=== PATIENT | female | born 1990 | race Caucasian/White ===

== ENCOUNTER 2018-04-23 13:54 | Emergency (ER) | payer OTHER, SELFPAY ==
[2018-04-23] MEDS ORDERED: Ketorolac Tromethamine 30 MG/ML VIAL ONE (14:31)
[2018-04-23] MEDS ORDERED: Dexamethasone 4 MG TAB ONE (14:31)
== END 2018-04-23 15:03 | disposition home or self-care (01) ==
LOC: ERS 13:54
DX: J02.9 Acute pharyngitis, unspecified (principal)
CPT/HCPCS: 87081; 87430; 96372; J1885; J8540

== ENCOUNTER 2019-03-22 20:18 | Day surgery (SDC) | payer MEDICAID, SELFPAY ==
[2019-03-22 22:23] VITALS: BP 108/64; TEMP 98.5; BMI 37.5
[2019-03-22] MEDS ORDERED: Ondansetron ODT 8 MG TAB SL SCH (23:00)
[2019-03-22 23:03] LABS: Bilirubin Negative (Negative); Blood, Urine Negative (Negative); Clarity CLEAR (Clear); Glucose, Urine (Dipstick) Negative (Negative); Leukocyte Negative (Negative); Nitrite Negative (Negative); Protein, Urine (Dipstick) Negative (Neg-Trace); Specific Gravity, Urine 1.026 (1.002-1.036)
[2019-03-22 23:05] LABS: RBC/HPF 0-3 HPF (0-3); Squamous Epithelial 0-3 HPF (0-3); WBC/HPF 0-3 HPF (0-3)
[2019-03-22 23:06] LABS: Bacteria/HPF None Seen HPF (None Seen); Hyaline Casts/LPF 0-3 HYALINE CAST LPF (0-3 Hyaline)
[2019-03-22 23:12] LABS: Hemoglobin 13.6 g/dL (12.0-16.0); Mean Corpuscular HGB CONC 34.1 g/dL (32.0-36.0); Mean Corpuscular Hemoglobin 30.2 pg (27.0-31.0); Mean Corpuscular Volume 88.4 fL (78.0-98.0); Mean Platelet Volume 9.1 fL (7.4-10.4); Platelet Count 220 thou/uL (130-400); RBC Distribution Width 12.5 % (11.5-14.5); Red Blood Cell (RBC) Count 4.51 mill/uL (4.20-5.40); White Blood Cell (WBC) Count 10.1 thou/uL (4.8-10.8)
[2019-03-22 23:32] LABS: ALT (SGPT) 10 U/L (8-55); AST (SGOT) 8 U/L (5-34); Albumin 3.8 g/dL (3.5-5.0); Alkaline Phosphatase 74 U/L (40-150); Anion Gap 10 mmol/L (10-20); BUN (Urea Nitrogen) 7 mg/dL (7.0-18.7); Bilirubin, Total 0.3 mg/dL (0.2-1.2); Calc. Creatinine Clearance 163 mL/min (70-130); Calcium 9.6 mg/dL (7.8-10.44); Carbon Dioxide 25 mmol/L (22-29); Chloride 107 mmol/L (98-107); Estimated GFR-MDRD Greater than 90; Glucose 90 mg/dL (70-105); Potassium 4.4 mmol/L (3.5-5.1); Protein, Total 6.8 g/dL (6.0-8.3); Sodium 138 mmol/L (136-145)
--- NOTE | 2019-03-27 08:19 | PRG ---
DATE OF SERVICE: 03/27/2019 PRIMARY OB: Dr. Juno Chamberlain. CHIEF COMPLAINT: Nausea and vomiting. HISTORY OF PRESENT ILLNESS: The patient is a 28-year-old, G11, P3 female with an intrauterine about 16 weeks gestation, who is presenting to the emergency room for nausea and vomiting, and was subsequently transferred to Labor and Delivery with concerns that she was 26 to 27 weeks in labor. Upon arrival to the floor, the patient reports that she has had a ultrasound confirming her gestational age at about 16 weeks, that she has been having nausea and vomiting and upper abdominal pain, that has since gotten better. The patient reports that she has been vomiting multiple times over the last 24 hours. She also reports that she has had some spotting when she vomited. The patient denies uterine contractions. PAST MEDICAL HISTORY: Negative. PAST SURGICAL HISTORY: She has had a , tonsillectomy. OB HISTORY: She has had multiple miscarriages and 3 deliveries. SOCIAL HISTORY: Denies drug, alcohol, tobacco use. ALLERGIES: PENICILLIN. MEDICATIONS: vitamins PHYSICAL EXAMINATION: VITAL SIGNS: Blood pressure 108/64, heart rate of 71, respiratory rate of 18, saturating 98% on room air, temperature 98.5. GENERAL: She appears to be in no acute distress. She is alert, oriented, cooperative, and pleasant to interact with. HEENT: Head is normocephalic, atraumatic. LUNGS: Clear to auscultation bilaterally. HEART: Has regular rate and rhythm. ABDOMEN: Tender in her upper epigastric region, which is primarily muscular in nature. EXTREMITIES: Nontender, nonedematous. heart tones are obtained and in the 150s. No contractions visible on tocometer. LABORATORY DATA: Blood work shows a white count of 10.1, hemoglobin 13.6, hematocrit 39.8, platelets of 220,000. Sodium 138, potassium 4.4, creatinine 0.72, glucose of 90, AST of 8, ALT of 18, alkaline phosphatase of 74. Urinalysis shows pH 6, specific gravity 1.026, negative for ketones, negative for nitrites, negative for leukocyte esterase, negative for squamous cells or bacteria. The patient reports that she is feeling a lot better examination and is comfortable going home. ASSESSMENT AND PLAN: The patient is a 28-year-old female with an intrauterine about 16 weeks gestation, who is planning on establishing care with Dr. Chamberlain next week. She was having some nausea and vomiting this morning with isolated spotting. Her nausea and vomiting seems to be not affecting her electrolytes as they all within normal limits. She has no evidence of urinary tract infection. Her urine is a little concentrated, but no ketones are present. The patient has been given a script for Zofran and been given reassurance, and has been discharged to home. Again, she has follow up with primary OB, Dr. Chamberlain next week. Job ID: [id number]
== END 2019-03-22 23:40 | disposition home or self-care (01) ==
LOC: L&D/OP 20:18 → ERS 20:18 → EDSTATUS 22:13 → L&D/OP 23:40
PROVIDERS: ATTEND Emergency Medicine
DX: O21.9 Vomiting of pregnancy, unspecified (principal); O99.89 Other specified diseases and conditions complicating pregnancy, childbirth and the puerperium; R10.9 Unspecified abdominal pain; O99.342 Other mental disorders complicating pregnancy, second trimester; F41.9 Anxiety disorder, unspecified; Z3A.16 16 weeks gestation of pregnancy; Z88.0 Allergy status to penicillin
CPT/HCPCS: 36415; 80053; 81001; 85027; 86850; 86900; 86901; 99284

== ENCOUNTER 2019-08-14 09:58 | Inpatient (IN) | payer OTHER ==
[2019-08-14 10:31] VITALS: BMI 40.0
[2019-08-14] MEDS ORDERED: Promethazine HCl 25 MG/ML VIAL IM PRN ×3 (10:44→15:07)
[2019-08-14] MEDS ORDERED: hydrALAZINE 20 MG/ML VIAL SLOW IVP PRN ×2 (10:44→15:07)
[2019-08-14] MEDS ORDERED: Ondansetron PF 4 MG/2 ML Vial IVP PRN ×3 (10:44→15:07)
[2019-08-14] MEDS ORDERED: Gentamicin 80 MG/2 ML VIAL IVPB SCH (10:45)
[2019-08-14] MEDS ORDERED: Clindamycin/D5W 900 MG in Premix Bag 1 BAG IVPB SCH (10:45)
[2019-08-14] MEDS ORDERED: Bicitra 30 ML UDCUP PO SCH (10:45)
[2019-08-14] MEDS: Lactated Ringer's 1,000 ML IV SCH ×2 (10:50→19:52)
--- NOTE | 2019-08-14 10:52 | PDOC.LDHP ---
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 at [facility]. Today will also be 4th . 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
[2019-08-14 11:11] LABS: Hemoglobin 12.2 g/dL (12.0-16.0); Mean Corpuscular HGB CONC 34.4 g/dL (32.0-36.0); Mean Corpuscular Hemoglobin 29.4 pg (27.0-31.0); Mean Corpuscular Volume 85.6 fL (78.0-98.0); Mean Platelet Volume 10.3 fL (7.4-10.4); Platelet Count 158 thou/uL (130-400); RBC Distribution Width 13.1 % (11.5-14.5); Red Blood Cell (RBC) Count 4.15 mill/uL (4.20-5.40); White Blood Cell (WBC) Count 9.6 thou/uL (4.8-10.8)
[2019-08-14] MEDS ORDERED: Gentamicin Sulfate 120 MG in Premix Bag 1 BAG IVPB SCH (11:15)
[2019-08-14 11:52] LABS: HBSAg Index 0.16 S/CO (0-0.99); Hep B Surf Ag Non-Reactive S/CO (NonReactive); Syphilis Antibody Nonreactive (Nonreactive); Syphilis Antibody Index 0.07 S/CO (<1.00 Non-Reactive)
[2019-08-14] MEDS ORDERED: MORPHINE 5 MG/10 ML PF VIAL ONE (11:59)
[2019-08-14] MEDS ORDERED: PHENYLEPHRINE-NS 100 MCG/ML 10 ML SYRINGE ONE ×2 (11:59→14:31)
[2019-08-14] MEDS ORDERED: Ondansetron PF 4 MG/2 ML Vial ONE ×2 (11:59→14:31)
[2019-08-14] MEDS ORDERED: ePHEDrine/0.9% NaCl/PF SYRINGE 50 mg/10 ml ONE (11:59)
[2019-08-14] MEDS ORDERED: Oxytocin 10 UNITS/ML VIAL ONE ×2 (11:59→12:40)
[2019-08-14 12:14] LABS: HIV (1/2) Antibody/Antigen Non-Reactive (NonReactive); HIV 1/2 INDEX 0.08 S/CO (<1.00)
[2019-08-14] MEDS ORDERED: Glycopyrrolate 0.2 MG/ML 5 ML SYRINGE ONE (12:21)
[2019-08-14] MEDS ORDERED: Metoclopramide HCl 10 MG/2 ML VIAL ONE ×2 (12:29→14:31)
[2019-08-14] MEDS ORDERED: Dexamethasone 4 mg/ml Vial ONE (12:29)
[2019-08-14] MEDS ORDERED: Ketorolac Tromethamine 30 MG/ML VIAL ONE ×2 (12:57→14:31)
[2019-08-14] MEDS ORDERED: Naloxone HCl 0.4 mg/ml Vial IVP PRN ×2 (13:36)
[2019-08-14] MEDS ORDERED: Ketorolac Tromethamine 30 MG/ML VIAL IVP PRN (13:36)
[2019-08-14] MEDS ORDERED: Naloxone HCl 0.4 mg/ml Vial IV PRN (13:36)
[2019-08-14] MEDS ORDERED: Promethazine HCl 25 MG SUPP PR PRN (13:36)
[2019-08-14] MEDS ORDERED: diphenhydrAMINE 50 MG/ML VIAL IVP PRN (13:36)
[2019-08-14] MEDS ORDERED: Communication Order-Pharmacy FS SCH (13:45)
[2019-08-14] MEDS ORDERED: ePHEDrine 50 MG/ML VIAL ONE (14:31)
[2019-08-14] MEDS ORDERED: Dexamethasone 20 MG/5 ML VIAL ONE (14:31)
[2019-08-14] MEDS ORDERED: Acetaminophen 325 MG TAB PO PRN (15:07)
[2019-08-14] MEDS ORDERED: Methylergonovine 0.2 MG/ML VIAL IM PRN (15:07)
[2019-08-14] MEDS ORDERED: Lanolin Ointment 7 GM TUBE TOP PRN (15:07)
[2019-08-14] MEDS ORDERED: Bisacodyl 10 MG SUPP PR PRN (15:07)
[2019-08-14] MEDS ORDERED: diphenhydrAMINE 25 MG CAP PO PRN (15:07)
[2019-08-14] MEDS ORDERED: Misoprostol 200 MCG TAB PR PRN (15:07)
[2019-08-14] MEDS ORDERED: NS / Oxytocin 40 units/1000ml 1,000 ML IV SCH (15:07)
[2019-08-14] MEDS: Docusate Calcium (SURFAK) 240 MG CAP PO SCH (19:51)
[2019-08-14] MEDS: Simethicone Chewable 80 MG TAB PO PRN (19:52)
[2019-08-15] MEDS ORDERED: Zolpidem Tartrate 5 MG TAB PO PRN (01:45)
[2019-08-15 03:33] LABS: Hemoglobin 10.5 g/dL (12.0-16.0); Mean Corpuscular HGB CONC 35.3 g/dL (32.0-36.0); Mean Corpuscular Volume 84.9 fL (78.0-98.0); Mean Platelet Volume 9.7 fL (7.4-10.4); Platelet Count 134 thou/uL (130-400); RBC Distribution Width 13.1 % (11.5-14.5); Red Blood Cell (RBC) Count 3.52 mill/uL (4.20-5.40); White Blood Cell (WBC) Count 8.9 thou/uL (4.8-10.8)
[2019-08-15] MEDS: HYDROcodone/Acetaminophen 5/325 mg Tablet PO PRN ×3 (04:25→16:18)
[2019-08-15] MEDS: Ibuprofen 800 MG TAB PO SCH ×2 (04:56→14:26)
[2019-08-15] MEDS ORDERED: Varicella virus, LIVE 0.5 ML VIAL SC ONE (09:00)
[2019-08-15] MEDS ORDERED: Adacel (T-DAP) 0.5 ML SYRINGE IM ONE (09:00)
[2019-08-15] MEDS ORDERED: Measles/Mumps/Rubella 10 MCG/0.5 ML VIAL SC ONE (09:00)
[2019-08-15] MEDS: Docusate Calcium (SURFAK) 240 MG CAP PO SCH ×2 (09:26→21:51)
[2019-08-15] MEDS: Prenatal Vitamin 1 TAB PO SCH (09:26)
[2019-08-15] MEDS: Simethicone Chewable 80 MG TAB PO PRN (16:20)
--- NOTE | 2019-08-15 17:46 | PDOC.PP ---
Post Progress Note Post Day #: 1 PO intake tolerated: yes Flatus: yes Ambulation: yes Vital Signs (12 hours) Temp Pulse Resp BP Pulse Ox 08/15/19 16:20 98.3 F 82 16 101/64 96 08/15/19 12:11 98.5 F 90 20 100/56 L 08/15/19 07:59 98.5 F 72 20 101/67 99 Weight Weight 212 lb - Physical Examination General: NAD Cardiovascular: no m/r/g, RRR Respiratory: clear to auscultation bilaterally, non-labored breathing Abdominal: + bowel sounds, lochia, no distention Extremities: negative homans (B) Skin: CS incision dry & intact, no rash Neurological: no gross focal deficits Psychiatric: A&Ox3, normal affect Result Diagrams: 08/15/19 03:24 Additional Labs: Post Labs Blood Type A POSITIVE 08/14/19 10:59 Hep Bs Antigen Non-Reactive S/CO (NonReactive) 08/14/19 10:59
[2019-08-15] MEDS ORDERED: Ibuprofen 800 MG TAB PO SCH (22:00)
[2019-08-16] MEDS: Ibuprofen 800 MG TAB PO SCH ×5 (01:21→21:11)
[2019-08-16] MEDS: Simethicone Chewable 80 MG TAB PO PRN ×3 (01:21→20:20)
[2019-08-16] MEDS: Docusate Calcium (SURFAK) 240 MG CAP PO SCH ×3 (01:21→20:21)
[2019-08-16] MEDS: HYDROcodone/Acetaminophen 5/325 mg Tablet PO PRN ×4 (02:12→20:21)
[2019-08-16] MEDS: Prenatal Vitamin 1 TAB PO SCH (10:04)
[2019-08-17] MEDS: HYDROcodone/Acetaminophen 5/325 mg Tablet PO PRN ×2 (05:07→09:15)
[2019-08-17] MEDS: Ibuprofen 800 MG TAB PO SCH (05:07)
[2019-08-17 08:18] VITALS: BP 108/67; TEMP 98.6
[2019-08-17] MEDS: Docusate Calcium (SURFAK) 240 MG CAP PO SCH (09:15)
[2019-08-17] MEDS: Prenatal Vitamin 1 TAB PO SCH (09:15)
[2019-08-17] MEDS: Simethicone Chewable 80 MG TAB PO PRN (09:17)
--- NOTE | 2019-08-17 23:59 | OP ---
DATE OF PROCEDURE: 08/14/2019 TIME OF DELIVERY: At 1235 hours, [place] Daylight Savings Time. PREOPERATIVE DIAGNOSES: Intrauterine at 37 weeks and zero days with a history of stillbirth, history of fragile X syndrome as well as other genetic carrier status. A 37-week delivery has been recommended previously by Dr. Rolanda Koo of [facility]. POSTOPERATIVE DIAGNOSES: Intrauterine at 37 weeks and zero days with a history of stillbirth, history of fragile X syndrome as well as other genetic carrier status. A 37-week delivery has been recommended previously by Dr. Rolanda Koo of [facility]. PROCEDURE: Repeat 4th low-transverse section. FINDINGS: Viable male weighing 3375 g or 7 pounds 7 ounces. Apgars of 8 and 9. QUANTITATIVE BLOOD LOSS: 450 mL. COMPLICATIONS: None. PROCEDURES PERFORMED: 1. Repeat low-transverse section. 2. Myomectomy of single anterior uterine fibroid. DETAILS OF THE PROCEDURE: The patient was consented and taken back to the operating room where spinal anesthesia was found to be adequate. She was then prepped and draped in the normal sterile fashion. A timeout was performed by the entire operative team. The incision was then marked with a marking pen tested using sharp pickups. An incision was then made with a scalpel. The incision was carried through the adipose tissue down to the underlying rectus fascia using both sharp dissection as well as cautery. Once the fascia was identified, it was incised in the midline and then the fascial incision was carried through in both lateral directions using sharp as well as cautery dissection techniques. Next, the superior aspect of the rectus fascia was grasped with 2 Lefty clamps, which was tented up and the rectus muscles were dissected off using blunt dissection as well as cautery dissection. Similarly, the inferior aspect of the fascial incision was grasped with 2 Lefty clamps, tented up and the rectus muscles were dissected off bluntly as well as sharply. Next, the rectus muscles were in the midline and the peritoneum identified. The peritoneum was then carefully grasped with 2 hemostats and entered sharply. The peritoneal incision was extended superiorly and inferiorly and bladder blade was placed in the lower abdomen. At this point, the uterus was identified and the bladder flap was then developed using pickups with teeth as well as Metzenbaum scissors in both lateral directions. The bladder flap was then dissected downwards using the continuous loft operator's finger as well as Metzenbaum scissors. The bladder blade was replaced. The lower uterine segment was then identified and entered sharply using a clean scalpel. The uterine incision was then dissected downwards until thin layer of muscle remained and this was entered bluntly using a hemostat to avoid any injury to the baby. The uterine incision was then stretched using two fingers in both lateral directions. An amniotomy was performed artificially using a hemostat and the baby was delivered using fundal pressure in a gentle fashion. Once out, the baby's mouth and nose were bulb suctioned, cord clamped and cut, and the baby was handed to waiting attendants. Next, the uterus was exteriorized, cleared of all clots and debris and the uterine incision was repaired with #1 Monocryl in a running locking fashion. A 2nd suture of the same type was used to obtain complete hemostasis at the uterine incision. The bladder flap was reapproximated using 3-0 Monocryl. Next, patient's left and right adnexa were inspected and appeared to be within normal limits. The posterior cul-de-sac was blotted dry and hemostasis assured. One more look at the uterine incision demonstrated hemostasis. Next, the uterus was replaced back within the abdomen. The peritoneum was reapproximated using 2-0 Monocryl without difficulty. The rectus muscles were then allowed to come back together and 0 chromic was used to aid in reapproximation of the muscle as necessary. The rectus fascia was then reapproximated in a running fashion using 0 Vicryl suture. The adipose tissue was then examined and appeared to be well approximated without any obvious separations. Finally, the skin was reapproximated with 3-0 Monocryl on a Balwinder needle without difficulty and Dermabond adhesive was applied to the skin. Once the glue was dry, the drapes were removed and the patient was transferred to an ambulatory bed where she was taken to recovery awake and in stable condition. Sponge, lap, and needle counts were correct x3. Following closure of the uterus, examination of the uterus itself revealed a small nodular lesion beneath the serosal surface on the anterior portion of the uterus. This was carefully examined. It was difficult to identify the exact pathologic nature of this lesion, but malignancy could not be absolutely ruled out. This area was excised carefully using Bovie cautery as well as sharp dissection. The lesion was sent to Pathology for permanent section. Hemostasis at that area was obtained using cautery as well as 3-0 chromic suture. The remainder of the surgery continued as planned. Job ID: [id number]
== END 2019-08-17 12:10 | disposition home or self-care (01) | DRG 788 ==
LOC: L&D 09:58 → 3SW 15:21 → EDSTATUS 09-04 09:04
PROVIDERS: ADMIT Obstetrics & Gynecology; ATTEND Obstetrics & Gynecology
PROC: 10D00Z1 Extraction of Products of Conception, Low, Open Approach (ICD-10-PCS; principal; 2019-08-14)
PROC: 0UB90ZZ Excision of Uterus, Open Approach (ICD-10-PCS; 2019-08-14)
DX: O34.211 Maternal care for low transverse scar from previous cesarean delivery (principal); Z3A.37 37 weeks gestation of pregnancy; Z37.0 Single live birth; O34.13 Maternal care for benign tumor of corpus uteri, third trimester; D25.9 Leiomyoma of uterus, unspecified; E88.01 Alpha-1-antitrypsin deficiency; Z14.8 Genetic carrier of other disease; O99.284 Endocrine, nutritional and metabolic diseases complicating childbirth
CPT/HCPCS: 36415; 51702; 85027; 86780; 86850; 86900; 86901; 87340; 87389; 88305; J1100; J1885; J2274; J2405; J2590; J2765; J3490; Q0163